=== PATIENT | male | born 1995 | race Caucasian/White ===

== ENCOUNTER 2025-04-26 10:45 | Emergency (ER) | payer OTHER, SELFPAY ==
[2025-04-26 11:02] VITALS: BP 121/67; PULSE 76; RESP 16; TEMP 36.4; O2SAT 99
--- NOTE | 2025-04-26 12:36 | PC.NURSE ---
Patient ran out of ED while crying. Did not stop at desk to speak with staff.
--- NOTE | 2025-04-26 13:00 | PC.NURSE ---
Addendum entered by Michelle Aden RN 04/26/25 13:10: EDP- emergency department physician Original Note: pt ran out of ED while [facility] was in the room. pt not given medication that was ordered. 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
--- NOTE | 2025-04-26 17:41 | ED.MALEGU ---
HPI - Male Genitourinary General Chief complaint: Urogenital-Male Stated complaint: there's something on my penis Time Seen by Provider: 04/26/25 12:02 History of Present Illness HPI Narrative: Patient with history of oral herpes currently having an outbreak noticed some blisters on his penis, he is terrified he contracted genital herpes because his girlfriend is Related Data Allergies Allergy/AdvReac Type Severity Reaction Status Date / Time No Known Allergies Allergy Verified 04/26/25 11:04 Review of Systems Review of Systems: All systems reviewed & are unremarkable except as noted in HPI and below Exam Narrative: EXAMINATION OF ORGAN SYSTEMS/BODY AREAS: Constitutional: Vital signs per nursing GENERAL: Appears extremely distraught and anxious HEAD: Normal with no signs of head trauma. EYES: EOMI, conjunctiva normal ENT: Hearing grossly intact LUNGS: Nonlabored breathing. HEART: Regular rate and rhythm ABD: Nondistended EXT: Normal range of motion SKIN: Cold sore on right lower lip, 1 or 2 blisters on penis shaft NEURO: Alert. No gross focal sensory or strength deficits. PSYCH: Distraught and anxious affect Course Vital Signs Vital signs: Vital Signs Temperature 97.6 F 04/26/25 11:02 Pulse Rate 76 04/26/25 11:02 Respiratory Rate 16 04/26/25 11:02 Blood Pressure 121/67 04/26/25 11:02 Pulse Oximetry 99 04/26/25 11:02 Oxygen Delivery Room Air 04/26/25 11:02 Temperature 97.6 F 04/26/25 11:02 Pulse Rate 76 04/26/25 11:02 Respiratory Rate 16 04/26/25 11:02 Blood Pressure 121/67 04/26/25 11:02 Pulse Oximetry 99 04/26/25 11:02 Oxygen Delivery Room Air 04/26/25 11:02 MDM MDM Narrative Medical decision making narrative: 29-year-old male with lifelong history of oral herpes currently with a cold sore, noticed recently 1-2 blisters on his shaft. On my examination, this does appear consistent with herpes, patient wanted to have a blood tests which I did order, he started screaming and crying that everything was ruined. I did attempt to have a long gentle discussion with him and girlfriend at bedside, that this does not appear to be a primary outbreak for so most likely he has had this for a long time and or it is dormant are, as he is monogamous with his girlfriend, and that this does not have to change anything, other than he can make sure to be on the antiviral medication which will help prevent any sort of outbreaks in the future. Patient continued crying and stormed out of the room. I spoke with his girlfriend who will go after him. I did send the prescriptions for Valtrex to the pharmacy, I did attempt to call the patient at the number listed here, and I did attempt to call the emergency contact his mom who is listed here, no answers. Differential Diagnosis Differential Diagnosis: Genital herpes, abrasion, etc Discharge Plan Discharge Clinical Impression: Herpes simplex Patient Disposition: Elopement After Seen by Prov Instructions: Genital Herpes Infection (ED), Oral Herpes Infection (ED) Patient Language: Serbian Prescriptions: New valacyclovir [Valtrex] 1 gram tablet 1,000 mg PO DAILY Qty: 5 0RF Follow-up/Referrals: PHYSICIAN,CONSULTING GROUP ANALYST [Primary Care Provider, Internal Medicine]
== END 2025-04-26 13:11 | disposition left against medical advice (07) ==
PROVIDERS: Emergency Provider Emergency Medicine
DX: A60.01 Herpesviral infection of penis (principal)
CPT/HCPCS: 99281